=== PATIENT | male | born 1945 | race Caucasian/White ===

== ENCOUNTER 2016-12-24 13:52 | Emergency (ER) | payer MEDICARE, OTHER ==
[~2016-12-24] VITALS: Ht 175.3 cm; Wt 80.0 kg
[2016-12-24 13:59] VITALS: Ht 175.3 cm; Wt 80.0 kg
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
[2016-12-24] MEDS ORDERED: IBUP400T22 PO (17:46)
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
[2016-12-24 18:01] VITALS: BP 150/77; PULSE 78; RESP 20; TEMP 98
== END 2016-12-24 18:02 | disposition home or self-care (01) ==
LOC: FTE 13:52
DX: S29.001A Unspecified injury of muscle and tendon of front wall of thorax, initial encounter (principal); I25.10 Atherosclerotic heart disease of native coronary artery without angina pectoris; E11.9 Type 2 diabetes mellitus without complications; V49.40XA Driver injured in collision with unspecified motor vehicles in traffic accident, initial encounter; Z95.1 Presence of aortocoronary bypass graft
CPT/HCPCS: 71020; 93005